=== PATIENT | female | born 1975 | race Hispanic/Latino ===

== ENCOUNTER 2020-02-14 13:20 | Observation (INO) | payer MEDICARE ==
[~2020-02-14] VITALS: Ht 170.2 cm; Wt 104.0 kg
[2020-02-14] VITALS (7 sets, daily range): BP systolic 93–146; BP diastolic 43–79
--- NOTE | 2020-02-14 13:20 | NUR ---
IMMEDIATELY TO TREATMENT ROOM #12 ON ARRIVAL TO ED.
--- NOTE | 2020-02-14 13:25 | NUR ---
PT CAME TO ER FOR ABD PAIN AND N/V AT HOME, STATES SHE IS HERE VISITING FROM [facility] AND HAS HAD THIS BEOFRE ABOUT 3 MONTHS AGO WITH NO DIAGNOSIS, STATES SHE HAS A HISTORY OF PANCREATIC CA WITH REMISSION X 6 YRS. SATETS THEY DID REMOVE MOST OF HER PANCREAS AND HER SPLEEN, CALL [facility].
[2020-02-14] MEDS ORDERED: GABAPENTIN100 MG PO ×2 (13:35→13:36)
[2020-02-14] MEDS ORDERED: REGLAN10 MG PO (13:36)
[2020-02-14] MEDS ORDERED: ZOFRAN8 MG PO (13:36)
[2020-02-14] MEDS ORDERED: PROTONIX40 MG PO (13:37)
[2020-02-14] MEDS ORDERED: MORPHINE SUL30 M3 PO ×2 (13:37→13:39)
[2020-02-14] MEDS ORDERED: DILAUDID8 MG PO (13:38)
[2020-02-14] MEDS ORDERED: ACETAMINOP160 MG/5 M PO (13:40)
[2020-02-14] MEDS ORDERED: KLONOPIN1 MG PO (13:43)
[2020-02-14 14:30] LABS: HEMOGLOBIN 13.9 g/dl (12.0-16.0); IMMATURE GRANULOCYTES 0.7 % (0.0-5.0); MEAN CELL VOLUME 90.3 fL CALC (80.0-100.0); MEAN CORPUSCULAR HGB 30.6 pG CALC (26.0-32.0); MEAN CORPUSCULAR HGB CONC 33.9 g/dL CAL (32.0-36.0); NEUT# 16.75 thou/uL (2.00-7.15); RED BLOOD COUNT 4.54 mill/uL (4.20-5.60); RED CELL DISTRI WIDTH 13.6 % (11.5-15.5)
--- NOTE | 2020-02-14 14:35 | NUR ---
PT RESTING WITH EYES ROLLED BACK AT TIMES, THEN AROUSES AND MOANS OUT, NO EMESIS NOTED ALL THOUGH PT MAKES GAGGING NOISES, THEN PT NODS OFF OR APPEARS IN NO DISTRESS WITH EYES PARTIALLY CLOSED, [facility] [place] [facility], TAKES LARGE AMOUNTS OF PAIN MEDICATIO AT HOME BUT STATES SHE VOMITED IT UP THIS AM, PT CONTINUES TO BE NODDED OFF BUT WHEN STAFF ENTERS ROOM SHE MOANS AND MAKES GAGGING NOISE, WILL CONTINUE TO MONITOR
--- NOTE | 2020-02-14 14:43 | NUR ---
MEDICATED AGAIN WITH MORPHINE FOR PAIN AND ZOFRAN FOR NAUSEA, PHELBOTOMY AT BEDSIDE FOR LAB DRAWS, CALL MERLOS WITHIN REACH, IOVF TOELRATED WELL.
[2020-02-14 15:18] LABS: ALBUMIN 4.8 g/dL (3.2-5.0); ALKALINE PHOSPHATASE 110 u/l (38-126); ANION GAP 17 (6-22 (CALC)); BILIRUBIN, TOTAL 0.8 mg/dL (0.0-1.4); BUN 8 mg/dL (7-17); BUN/CREATININE RATIO 16 (12-20 (CALC)); CARBON DIOXIDE 22 mmol/l (22-30); CHLORIDE 101 mmol/l (95-108); CREATININE 0.5 mg/dL (0.5-1.0); GFR > 60 ML/MIN (>=60 (CALC)); GFR FOR AFR.AMER. > 60 ML/MIN (>=60 (CALC)); LIPASE 18 u/l (23-300); POTASSIUM 3.6 mmol/l (3.5-5.1); SGOT/AST 27 u/l (14-36); SODIUM 137 mmol/l (137-146)
--- NOTE | 2020-02-14 15:45 | NUR ---
PT CONTINUES TO CRY AND COMPLAIN OF PAIN DECLINES GOING TO CT ASKING FOR MORE PAIN MEDICATION EDUCATED REGARDING THE AMOPUNT OF PAIN MEDICATION SHE HAS BEEN GIVEN, IN TO SEE PATIENT.
--- NOTE | 2020-02-14 15:49 | NUR ---
PT AGREEABLE TO CT SCAN, TO RADIOLGY VIA STRETCHER
--- NOTE | 2020-02-14 16:25 | NUR ---
PT CONTINUES TO MOAN AND GROAN WITH EYES CLOSED, NO NEW COMPLAINTS OFFERED, PT MAKES GAGGING NOISES BUT NO EMESIS NOTED, ASKS FOR MORE ICE CHIPS WELL.
--- NOTE | 2020-02-14 17:06 | NUR ---
PT ASSSITED OOB TO BSC, URINE SPECIMEN OBTAINED, PT CONTINEUS TO CRY OUT AND MOAN WHEN STAFF IN ROOM, CALL [facility]
[2020-02-14 17:43] LABS: URINE BILIRUBIN - DIPSTICK NEGATIVE (NEGATIVE); URINE BLOOD DIPSTICK NEGATIVE (NEGATIVE); URINE COLOR YELLOW; URINE GLUCOSE - DIPSTICK NEGATIVE (NEGATIVE); URINE KETONE >=80 mg/dL (NEGATIVE); URINE LEUK ESTERASE NEGATIVE (NEGATIVE); URINE NITRITE - DIPSTICK NEGATIVE (Negative); URINE PROTEIN - DIPSTICK NEGATIVE (NEG-TRACE); URINE UROBILINOGEN - DIPSTICK 0.2 E.U./dL (0.2)
--- NOTE | 2020-02-14 17:45 | NUR ---
MD AWARE OF DIFFICULTY OBTAINING BC ONE PEDI BC OBTAINED AND IVF NAD ABT STARTED AT THIS TIME ORDERED, PT REPOSITIONED FOR COMFORT, CALL MERLOS WITHIN REACH, PT REQUESTS A SPONGE TO SWAB HER MOUTH AND ERASTO ICE WATER TO SWAB WITH WELL. BOTH PROVIDED, WILL CONTINUE TO MONITOR.
[2020-02-14 17:49] LABS: BARBITURATES NEGATIVE (NEGATIVE); COCAINE NEGATIVE (NEGATIVE); METHADONE NEGATIVE (NEGATIVE); TETRAHYDROCANNABIONOL POSITIVE (NEGATIVE); TRICYLIC ANTIDEPRESSANTS NEGATIVE (NEGATIVE)
[2020-02-14 17:50] LABS: OXCYCODONE POSITIVE (NEGATIVE)
--- NOTE | 2020-02-14 18:15 | NUR ---
SBAR PRINTED TO FLOOR
--- NOTE | 2020-02-14 18:17 | NUR ---
MEDICATED WITH ATIVAN ORDERED, AND ICE CHIPS PROVIDED, PT EDUCATED REGARDING NPO BUT PT ARGUES WUITH STAFF REGARDING AMOUNT OF INTAKE THUS FAR.
--- NOTE | 2020-02-14 19:05 | NUR ---
PT RESTING UPON MY ARRIVAL REPORT WAS RECEIVED...THEN VISITOR ARRIVED AND PT STARTED MOANING AND RANG CALL LIGHT STATING THAT HER PAIN WAS A 9-10. VISITOR ADVISED ME THAT "ATIVAN IS NOT FOR PAIN," AND THAT WE NEEDED TO GIVE HER SOMETHING FOR PAIN. ADVISED THAT SHE HAS HAD PLENTY OF PAIN MEDICATION IN ADDITION TO THE ATIVAN. PT MEDICATED WITH MORPHINE.
--- NOTE | 2020-02-14 19:31 | NUR ---
REPORT TO PRIYA/MED-SURG
--- NOTE | 2020-02-14 19:34 | NUR ---
DR WHITLEY NOTIFIED OF LACTIC ACID OF 2.7 AND OF BLOOD PRESSURES AROUND 176/93. ORDERS GIVEN.
--- NOTE | 2020-02-14 20:05 | NUR ---
ORDERS FAXED TO PHARM/CALLED TO VERIFY RECEIT.. NEEDED TO VERIFY ALLERGIES. PT HAS ADVERSE REACTION...BUT NO ALLERGIES. PT RESTING UPON ARRIVAL TO ROOM BUT STARTED TO MOAN. PT TO FLOOR VIA STRETCHER WITH POCKET MONITOR. UPON ARRIVAL PT STATES THAT SHE CANNOT WALK BECAUSE OF LEGS BEING NUMB AND THEN STATES THAT SHE CAN'T MOVE HANDS. PT MOVED HERSELF TO BED.
--- NOTE | 2020-02-14 20:54 | NUR ---
ART SPECIALIST PHYSICIAN NOTIFIED OF PT C/O OF NO RELIEF OF PAIN FROM MORPHINE AND PT REQUESTING DILAUDID. MADE PHYSICIAN AWARE OF MEDICATIONS RECEIVED FROM PT AND SENT TO PHARMACY THAT ALSO INCLUDED MEDICATIONS NOT PRESCRIBED TO PT. REED DECLINED ANY OTHER ORDERS FROM PAIN MEDICATION AT THIS TIME. WILL CONTINUE TO MONITOR LABS AND ADMINISTER ABT ORDERED, MEDICATE FOR PAIN NEEDED WITH MORPHINE.
--- NOTE | 2020-02-14 21:31 | NUR ---
DRESS CAP MAKER PHYSICIAN NOTIFIED OF REPEAT LACTIC ACID NOW 3.3. ORDERS RECEIVED TO START VANCOMYCIN IV PHARMACY TO DOSE, INCREASE IV FLUIDS TO 150ML/HR AND CONTINUE TO MONITOR. INFORMED PT AT THIS TIME OF FINDINGS AND NEW ORDERED. PT VERBALIZED UNDERSTANDING.
--- NOTE | 2020-02-14 22:30 | NUR ---
DR. LEES NOTIFIED OF PT STATUS AT THIS TIME PER DIRECTOR OF PHYSICIAN PRACTICES PHYSICIAN. ORDERS RECEIVED TO GIVE BOLUS OF FLUIDS. WILL CONTINUE TO MONITOR.
--- NOTE | 2020-02-14 22:58 | NUR ---
ENTRANCE GUARD RECEIVED PHONE CALL FROM . UPDATED ON PT CURRENT VS. NEW ORDERS RECEIVED FOR CTA OF ABD AND REPEAT LACTIC IN AM.
--- NOTE | 2020-02-15 01:04 | NUR ---
PT MEDICATED FOR SHARP EPIGASTRIC PAIN THAT RADIATES AROUND TO BACK AND DOWN RIGHT SIDE 8-10. CURRENT BP 120/60 HR 54. ASSISTED PT UP TO BSC, PT VOID 1600 CLEAR YELLOW OUTPUT. AFEBRILE AT THIS TIME. NO APPARENT DISTRESS NOTED. IV ABT INFUSING WITHOUT DIFFICULTY. CALL LIGHT WITHIN REACH. WILL CONTINUE TO MONITOR.
[2020-02-15 04:38] VITALS: BP 118/56
--- NOTE | 2020-02-15 04:48 | NUR ---
PT MEDICATED FOR SHARP EPIGASTRIC PAIN 9-10 WITH PRN IV MORPHINE. PT DENIES ANY OTHER WANTS OR NEEDS. CALL LIGHT WITHIN REACH. WILL CONTINUE TO MONITOR.
[2020-02-15 07:01] LABS: HEMATOCRIT 35.1 % (37.0-47.0); HEMOGLOBIN 11.6 g/dl (12.0-16.0); IMMATURE GRANULOCYTES 0.3 % (0.0-5.0); MEAN CELL VOLUME 91.6 fL CALC (80.0-100.0); MEAN CORPUSCULAR HGB 30.3 pG CALC (26.0-32.0); NEUT# 11.04 thou/uL (2.00-7.15); RED BLOOD COUNT 3.83 mill/uL (4.20-5.60); RED CELL DISTRI WIDTH 13.4 % (11.5-15.5)
[2020-02-15 07:05] LABS: ALKALINE PHOSPHATASE 67 u/l (38-126); ANION GAP 10 (6-22 (CALC)); BILIRUBIN, TOTAL 0.6 mg/dL (0.0-1.4); BUN 6 mg/dL (7-17); BUN/CREATININE RATIO 13 (12-20 (CALC)); CARBON DIOXIDE 21 mmol/l (22-30); CHLORIDE 108 mmol/l (95-108); CREATININE 0.5 mg/dL (0.5-1.0); GFR > 60 ML/MIN (>=60 (CALC)); GFR FOR AFR.AMER. > 60 ML/MIN (>=60 (CALC)); POTASSIUM 3.5 mmol/l (3.5-5.1); SGOT/AST 23 u/l (14-36); SODIUM 135 mmol/l (137-146)
[2020-02-15 07:22] VITALS: BP 106/56
--- NOTE | 2020-02-15 07:22 | NUR ---
PT RESTING IN BED, NO SIGNS OF DISTRESS NOTED, RESP EVEN AND UNLABORED. PT C/O PAIN, DISCUSSED POC, AND PAIN MEDICATION SCHEDULE, MED NOT DUE AT THIS TIME, PT VERBALIZED UNDERSTANDING. ASSESSMENT COMPLETED, CALL LIGHT IN REACH,CONTINUE TO MONITOR.
[2020-02-15 07:24] LABS: ALBUMIN 3.3 g/dL (3.2-5.0)
--- NOTE | 2020-02-15 08:13 | NUR ---
PT MEDICATED FOR PAIN AT THIS TIME,MOUTH SWABS PROVIDED, CALL LIGHT IN REACH,CONTINUE TO MONITOR.
--- NOTE | 2020-02-15 08:35 | NUR ---
S: QUINCY MELGAR is a 44 F who presents with Abdominal Pain. She has a history of PANCREATIC CANCER CHRONIC PAIN SYNDROME. All medications in patient's chart were reviewed. O: VS: BP 106/56, P 63, RR 22,T 99.7 W 104 kg, HT 67 in, Scr= 0.5,CrCl= >100ml/min A: Blood culture is pending P: Patient is on Zosyn 3.375grams q6h . Vancomycin ordered for pharmacy to dose. Start Vancomycin 2 grams IV Q12H. Vancomycin trough is drawn before the 4th dose on 02/16/20 @ 1030. Vancomycin goal trough is between 10-20 mcg/ml . Pharmacy will follow and or advise on antibiotics use as needed. LEXI CABRERA PHARMD
--- NOTE | 2020-02-15 09:10 | NUR ---
AT BEDSIDE TO EVALUATE PT
[2020-02-15 10:45] VITALS: BP 118/68
--- NOTE | 2020-02-15 10:58 | NUR ---
PT C/O SEVERE ABD PAIN, DISCUSSED WITH AND NABEEL NO NEW ORDERS FOR PAIN MEDICATION RECEIVED. INFORMED PT THAT PAIN MED CAN BE ADMINISTERED AT 1230, PT REQUESTING HER HOME PAIN MED, INFORMED PT THAT MEDS WERE SENT TO PHARMACY AND PER POLICY MEDICATIONS WOULD HAVE TO BE APPROVED BY MD, INFORMED PT THAT MD WILL EVALUATE SHORTLY.
--- NOTE | 2020-02-15 12:10 | NUR ---
PT TEARFUL C/O PAIN 07/11, MEDICATED FOR PAIN AND NAUSEA, DISCUSSED ZOSYN, IV INITIATED. INFORMED PT THAT ONCE SHE RETURNS FROM ULTRASOUND SHE MAY TAKE HER HOME PAIN MEDICATION. PT AGREED.
--- NOTE | 2020-02-15 12:28 | NUR ---
PT TAKEN DOWN TO ULTRASOUND; CONTINUE TO MONITOR.
--- NOTE | 2020-02-15 13:13 | NUR ---
PT RETURNED FROM RADIOLOGY, ANTIBIOTICS CONTINUED. PT MEDICATED WITH SCHEDULED MEDS AT THIS TIME. WATER PROVIDED. CALL LIGHT IN REACH,CONTINUE TO MONITOR.
--- NOTE | 2020-02-15 13:42 | NUR ---
MD AT BEDSIDE, TO DISCUSS POC
[2020-02-15 15:15] VITALS: BP 126/62
--- NOTE | 2020-02-15 20:42 | NUR ---
PT RESTING IN BED, ALERT AND ORIETNED. RESPIRATIONS EVEN AND UNLABORED ON RA. LUNGS SOUND CLEAR/DIMINISHED. PEDAL PULSES STRONG. TELE IN PLACE. CALL MERLOS WITHIN REACH. WILL CONTINUE TO MONTIOR.
[2020-02-16 00:07] VITALS: BP 107/63
--- NOTE | 2020-02-16 00:27 | NUR ---
PT RESTING IN BED, WITH EYES CLOSED. RESPIRATIONS EVEN AND UNLABORED, NO S/S OF DISTRESS AT THIS TIME. SAFETY PRECAUTIONS IN PLACE. WILL CONTINUE TO MONITOR.
[2020-02-16 03:10] VITALS: BP 111/74
--- NOTE | 2020-02-16 04:20 | NUR ---
PT RESTING IN BED. RESPIRATIONS EVEN AND UNLABORED ON RA. NO S/S OF DISTRESS AT THIS TIME. TELE IN PLACE. CALL MERLOS WITHIN REACH, WILL CONTINUE TO MONITOR.
[2020-02-16 04:57] LABS: HEMATOCRIT 32.9 % (37.0-47.0); MEAN CELL VOLUME 92.9 fL CALC (80.0-100.0); MEAN CORPUSCULAR HGB 31.1 pG CALC (26.0-32.0); MEAN CORPUSCULAR HGB CONC 33.4 g/dL CAL (32.0-36.0); RED BLOOD COUNT 3.54 mill/uL (4.20-5.60); RED CELL DISTRI WIDTH 13.7 % (11.5-15.5)
[2020-02-16 05:14] LABS: ANION GAP 8 (6-22 (CALC)); BUN 4 mg/dL (7-17); BUN/CREATININE RATIO 9 (12-20 (CALC)); CARBON DIOXIDE 24 mmol/l (22-30); CHLORIDE 109 mmol/l (95-108); CREATININE 0.4 mg/dL (0.5-1.0); GFR > 60 ML/MIN (>=60 (CALC)); GFR FOR AFR.AMER. > 60 ML/MIN (>=60 (CALC)); POTASSIUM 3.5 mmol/l (3.5-5.1); SODIUM 137 mmol/l (137-146)
[2020-02-16 07:14] VITALS: BP 116/75
--- NOTE | 2020-02-16 07:14 | NUR ---
PT RESTING IN BED, NO SIGNS OF DISTRESS NOTED, RESP EVEN AND UNLABORED. PT ALERT AND ORIENTED X3. STATES SHE FEELS BETTER THAN YESTERDAY, DISCUSSED POC, VSS, PT C/O PAIN, MEDICATED PER MAR. ASSESSMENT COMPLETED, CALL LIGHT IN REACH, CONTINUE TO MONITOR.
--- NOTE | 2020-02-16 09:18 | NUR ---
PT AMBULATING TO BED FROM BATHROOM, NO SIGNS OF DISTRESS NOTED, RESP EVEN AND UNLABORED. PT VOICES NO NEEDS OR COMPLAINTS AT THIS TIME, MEDICATED PER MAR, CALL LIGHT IN REACH,CONTINUE TO MONITOR.
--- NOTE | 2020-02-16 10:46 | NUR ---
TO EVALUATE PT
[2020-02-16 11:09] VITALS: BP 127/78
--- NOTE | 2020-02-16 12:00 | NUR ---
PT SITTING IN BED EATING LUNCH, CALL LIGHT IN REACH,CONTINUE TO MONITOR.
--- NOTE | 2020-02-16 13:50 | NUR ---
S: QUINCY MELGAR is a 44 F who presents with ABDOMINAL PAIN WITH WBC OF 23.4 . She has a history of CANCER . All medications in patient's chart were reviewed. O: VS: BP 127/78, P 56, RR 20,T 98.8 W 104kg, HT 67 IN, Scr= 0.4 A: Blood culture NO GROWTH OF 24HRS P: Patient is on ZOSYN 3.375 GRAMS Q6H Vancomycin ordered for pharmacy to dose. VANCOMYCIN TROUGH IS AT 9 ON 02/16/20 CONTINUE Vancomycin 2 GRAMS IV Q12H. Vancomycin trough is drawn before the 4th dose on 02/17/20 @1030. Vancomycin goal trough is between 10-20 mcg/ml. Pharmacy will follow and or advise on antibiotics use as needed. LEXI CABRERA PHARMD
[2020-02-16 15:24] VITALS: BP 112/71
--- NOTE | 2020-02-16 17:21 | NUR ---
PT SITTING IN BED, ZOSYN INFUSION INITIATED. CALL LIGHT IN REACH,CONTINUE TO MONITOR.
[2020-02-16 19:30] VITALS: BP 124/78
--- NOTE | 2020-02-17 00:15 | NUR ---
PT RESTING IN BED ALERT AND ORIENTED, PT STATES "I THINK MY IV IS LEAKING" IV SITE ASSESSED, IV #20 RIJ COMING OUT, IV REMOVED, NEW IV STARTED #22 LEFT FORARM, PT TOLERATED WELL. SAFETY PRECAUTIONS IN PLACE. WILL CONTINUE TO MONITOR.
--- NOTE | 2020-02-17 03:58 | NUR ---
PT RESTING IN BED. NO S/S OF DISTRESS AT THIS TIME. SAFETY PRECAUTIONS IN PLACE. WILL CONTINUE TO MONITOR.
[2020-02-17 04:36] VITALS: BP 113/76
[2020-02-17 05:26] LABS: ANION GAP 6 (6-22 (CALC)); BUN 4 mg/dL (7-17); BUN/CREATININE RATIO 8 (12-20 (CALC)); CARBON DIOXIDE 26 mmol/l (22-30); CHLORIDE 110 mmol/l (95-108); CREATININE 0.5 mg/dL (0.5-1.0); GFR > 60 ML/MIN (>=60 (CALC)); GFR FOR AFR.AMER. > 60 ML/MIN (>=60 (CALC)); POTASSIUM 3.8 mmol/l (3.5-5.1); SODIUM 138 mmol/l (137-146)
[2020-02-17 05:29] LABS: HEMATOCRIT 35.7 % (37.0-47.0); HEMOGLOBIN 11.8 g/dl (12.0-16.0); IMMATURE GRANULOCYTES 0.4 % (0.0-5.0); MEAN CELL VOLUME 92.7 fL CALC (80.0-100.0); MEAN CORPUSCULAR HGB 30.6 pG CALC (26.0-32.0); MEAN CORPUSCULAR HGB CONC 33.1 g/dL CAL (32.0-36.0); NEUT# 3.78 thou/uL (2.00-7.15); RED BLOOD COUNT 3.85 mill/uL (4.20-5.60)
--- NOTE | 2020-02-17 07:10 | NUR ---
REPORT RECEIVED FROM STEVEN WHITEHEAD;PT APPEARS TO BE SLEEPING IN SEMI FOWLERS POSITION;NO S/S OF DISTRESS NOTED;RESPIRATIONS EVEN AND UNLABORED ON RA;IV FLUIDS INFUSING WITH EASE PER ORDER;ALL SAFETY PRECAUTIONS IN PLACE WITH BED IN THE LOWEST POSITION AND CALL LIGHT IN REACH;WILL CONTINUE TO MONITOR
--- NOTE | 2020-02-17 09:05 | NUR ---
PT RESTING IN SEMI FOWLERS POSITION,A&O X3;VS OBTAINED AND ASSESSMENT COMPLETED;PT REPORTS ABDOMINAL PAIN RATING 6/10 ON THE PAIN SCALE AND REQUESTS PAIN MEDICATION,PT TO BE MEDICATED WITH PRN HOME HYDROMORPHONE PER ORDER;RESPIRATIONS EVEN AND UNLABORED ON RA,CLEAR LUNG SOUNDS;ABDOMEN DISTENDED/SOFT ON PALPATION AND ACTIVE IN ALL 4 QUADRANTS;STRONG PEDAL PULSES;SKIN INTACT;#22G TO LFA INFUSING NS @ 150ML/HR,SITE APPEARS HEALTHY;PT TOLERATED DIET WELL;PT DENIES ANY ADDITIONAL NEEDS AT THIS TIME AND IS ENCOURAGED TO CALL FOR ASSISTANCE IF NEEDED;FALL PRECAUTIONS IN PLACE WITH CALL LIGHT IN REACH;WILL CONTINUE TO MONITOR
[2020-02-17 09:08] VITALS: BP 121/74
--- NOTE | 2020-02-17 10:30 | NUR ---
LAB AT BEDSIDE
[2020-02-17 10:45] VITALS: BP 125/79
--- NOTE | 2020-02-17 11:20 | NUR ---
PT RESTING IN SEMI FOWLERS POSITION;RESPIRATIONS REMAIN EVEN AND UNLABORED ON RA;PT REPORTS THAT PAIN HAS DECREASED SINCE PAIN MEDICATION ADMINISTRATION;IV FLUIDS INFUSING WITH EASE PER ORDER AND ABX STARTED AT THIS TIME.VANCO TROUGH 10;PT DENIES ANY ADDITIONAL NEEDS AT THIS TIME AND IS ENCOURAGED TO CALL FOR ASSISTANCE IF NEEDED;CALL LIGHT IN REACH;WILL CONTINUE TO MONITOR
--- NOTE | 2020-02-17 12:37 | NUR ---
AT BEDSIDE DISCUSSING POC WITH PT.
[2020-02-17] MEDS ORDERED: METRONIDAZOL500 MG PO ×2 (12:39)
[2020-02-17] MEDS ORDERED: CIPROFLOXACN500 MG PO ×2 (12:39)
--- NOTE | 2020-02-17 13:15 | NUR ---
ALL DISCHARGE INSTRUCTIONS PROVIDED AT THIS TIME;PT INSTRUCTED TO TAKE FLAGYL AND CIPRO DIRECTED,RX WERE SENT TO [facility];PT ALSO INSTRUCTED TO KEEP WELL HYDRATED AND F/U WITH PAIN AND GI SPECIALIST;PT DENIES ANY ADDITIONAL QUESTIONS OR NEEDS;HOME MEDICATIONS PROVIDED TO PT FOR D/C HOME;WHEELCHAIR TO BE PROVIDED FOR D/C HOME;AWAITING IV ABX TO BE INFUSED FOR D/C;PT ENCOURAGED TO CALL FOR ASSISTANCE IF NEEDED;CALL LIGHT IN REACH;WILL CONTINUE TO MONITOR
--- NOTE | 2020-02-17 15:45 | NUR ---
PT AMBULATING AROUND ROOM AFTER A SHOWER;RESPIRATIONS EVEN AND UNLABORED ON RA;PT DENIES ANY CURRENT PAIN OR NEEDS;FAMILY TO TRANSPORT PT HOME;WHEELCHAIR TO BE PROVIDED FOR D/C;ENCOURAGED TO CALL FOR ASSISTANCE IF NEEDED;CALL LIGHT IN REACH;WILL CONTINUE TO MONITOR
--- NOTE | 2020-02-17 16:17 | NUR ---
Discharge instructions given. Patient verbalizes understanding of same. Discharged in stable condition via Wheelchair to Home with family. All belongings sent with pt. PT TRANSPORTED TO [facility] IN STABLE CONDITION VIA WHEELCHAIR FOR D/C HOME ACCOMPANIED BY ADRI ODONNELL.FAMILY TO TRANSPORT PT HOME.
== END 2020-02-17 16:18 | disposition home or self-care (01) ==
LOC: ED 13:20 → ED-I 16:57 → ED 18:11 → ED-I 18:12 → EDBD 18:12 → MS2 18:12 → ED-I 18:12 → MS2 18:56
PROVIDERS: Family Medicine; Nurse Practitioner Family; Surgery; ADMIT Internal Medicine; ATTEND Internal Medicine
DX: G89.4 Chronic pain syndrome (principal); D72.829 Elevated white blood cell count, unspecified; E87.2 Acidosis; N28.1 Cyst of kidney, acquired; K76.0 Fatty (change of) liver, not elsewhere classified; Z90.411 Acquired partial absence of pancreas; Z90.81 Acquired absence of spleen; Z85.07 Personal history of malignant neoplasm of pancreas; Z20.828 Contact with and (suspected) exposure to other viral communicable diseases
CPT/HCPCS: G0378; J1650; J2060; Q9967; S0164

== ENCOUNTER 2020-05-07 13:05 | Inpatient (IN) | payer MEDICARE ==
[~2020-05-07] VITALS: Ht 170.2 cm; Wt 100.0 kg
[~2020-05-07 13:05] MED LIST: ACETAMINOP160 MG/5 M PO; CIPROFLOXACN500 MG PO; DILAUDID8 MG PO; GABAPENTIN100 MG PO; KLONOPIN1 MG PO; METRONIDAZOL500 MG PO; MORPHINE SUL30 M3 PO; PROTONIX40 MG PO; REGLAN10 MG PO; ZOFRAN8 MG PO
--- NOTE | 2020-05-07 13:12 | NUR ---
MEDICATED WITH MORPHINE 4MG IVP WITH ZOFRAN 4MG IVP FOR C/O 9/10 ABD PAIN.
--- NOTE | 2020-05-07 13:16 | NUR ---
PATIENT TO ROOM VIA EMS AND PHYSICIAN AT BEDSIDE FOR EVAL
--- NOTE | 2020-05-07 13:50 | NUR ---
PT SWABBED FOR COVID, PLACED IN ISOLATION PRECAUTIONS.
[2020-05-07 14:10] LABS: IMMATURE GRANULOCYTES 0.6 % (0.0-5.0); MEAN CELL VOLUME 94.6 fL CALC (80.0-100.0); MEAN CORPUSCULAR HGB 30.2 pG CALC (26.0-32.0); MEAN CORPUSCULAR HGB CONC 31.9 g/dL CAL (32.0-36.0); NEUT# 15.65 thou/uL (2.00-7.15); RED BLOOD COUNT 4.64 mill/uL (4.20-5.60); RED CELL DISTRI WIDTH 13.2 % (11.5-15.5)
[2020-05-07 14:15] LABS: HEMATOCRIT 43.9 % (37.0-47.0)
[2020-05-07 14:37] LABS: ALKALINE PHOSPHATASE 97 u/l (38-126); AMYLASE 72 u/l (30-110); ANION GAP 14 (6-22 (CALC)); BILIRUBIN, TOTAL 0.5 mg/dL (0.0-1.4); BUN 9 mg/dL (7-17); BUN/CREATININE RATIO 17 (12-20 (CALC)); CARBON DIOXIDE 22 mmol/l (22-30); CHLORIDE 104 mmol/l (95-108); CREATININE 0.5 mg/dL (0.5-1.0); GFR > 60 ML/MIN (>=60 (CALC)); GFR FOR AFR.AMER. > 60 ML/MIN (>=60 (CALC)); LIPASE 12 u/l (23-300); POTASSIUM 3.9 mmol/l (3.5-5.1); SGOT/AST 30 u/l (14-36); SODIUM 135 mmol/l (137-146)
--- NOTE | 2020-05-07 14:43 | NUR ---
MEDICATED PT FOR NAUSEA AND 8/10 UPPER ABD PAIN. SUPPLEMENTAL OXYGEN APPLIED FOR COMFORT. IVF COMPLETED. ANATOLIY ONE PEDIATRIC BLOOD CULTURE.
[2020-05-07 14:51] LABS: ALBUMIN 4.5 g/dL (3.2-5.0); TOTAL PROTEIN 7.9 g/dL (6.3-8.2)
--- NOTE | 2020-05-07 15:00 | NUR ---
PT RESTING MORE COMFORTABLY AT THIS TIME. NO EMESIS. VSS. COMPLETED IVF BOLUS
--- NOTE | 2020-05-07 16:28 | NUR ---
MEDICATED WITH IV DILAUDID ORDERED FOR ABD PAIN 05/11. WICK PLACED FOR COMFORT AND TO OBTAIN URINE
--- NOTE | 2020-05-07 16:50 | NUR ---
OBTAINED CLEAR YELLOW URINE VIA STRAIGHT CATH. PT TOLERATED WELL.
[2020-05-07 17:02] LABS: URINE BILIRUBIN - DIPSTICK NEGATIVE (NEGATIVE); URINE BLOOD DIPSTICK NEGATIVE (NEGATIVE); URINE COLOR YELLOW; URINE GLUCOSE - DIPSTICK 100 mg/dL (NEGATIVE); URINE KETONE 40 mg/dL (NEGATIVE); URINE LEUK ESTERASE NEGATIVE (NEGATIVE); URINE NITRITE - DIPSTICK NEGATIVE (Negative); URINE PROTEIN - DIPSTICK NEGATIVE (NEG-TRACE); URINE UROBILINOGEN - DIPSTICK 0.2 E.U./dL (0.2)
--- NOTE | 2020-05-07 17:25 | NUR ---
PT RESTING WITH EYES CLOSED WHEN ROUSED BY STAFF STATES ABD PAIN 03/11. VISITOR AT BEDSIDE
--- NOTE | 2020-05-07 18:50 | NUR ---
HAND OFF REPORT RECEIVED FROM STEVEN DE LOS SANTOS
--- NOTE | 2020-05-07 18:59 | NUR ---
PATIENT TO ULTRASOUND BY STRETCHER
--- NOTE | 2020-05-07 20:30 | NUR ---
HAND OFF REPORT GIVEN TO KEISHA FOR INPATIENT TREATMENT.
--- NOTE | 2020-05-07 20:39 | NUR ---
45 yr old white female admitted icu6 per stretcher from er. transferred x3 to bed. bed weight obtained. #18 lac ns began @ 125cchr as ordered. bus monitor shows sinus cynthia hr 48. asked pt about hr. pt said "it happens when i get sick." history obtained per pt & er record. oriented to room. fall & air/contact precautions initiated.
[2020-05-07 20:45] VITALS: BP 168/95
[2020-05-07 21:00] VITALS: BP 193/86
--- NOTE | 2020-05-07 21:00 | NUR ---
medicated for pain & nausea.
--- NOTE | 2020-05-07 22:00 | NUR ---
pt yelling out for assistance. instructed again about call system. assisted to bsc. voided large amt then back to bed. ice chips given as requested.
[2020-05-07 22:15] VITALS: BP 176/84
[2020-05-07 22:30] VITALS: BP 194/90
[2020-05-07 22:45] VITALS: BP 166/66
[2020-05-08] VITALS (16 sets, daily range): BP systolic 122–186; BP diastolic 66–95
--- NOTE | 2020-05-08 00:01 | NUR ---
eyes closed. nad. chief hospital administrator shows sinus cynthia hr 50. ivf infusing well.
--- NOTE | 2020-05-08 01:15 | NUR ---
c/o pain & nausea. medicated as ordered.
--- NOTE | 2020-05-08 01:30 | NUR ---
up to bsc then back to bed. voided lg amt.
--- NOTE | 2020-05-08 04:00 | NUR ---
eyes closed. no distress. cardiac cath lab manager shows sinus cynthia pvcs hr 50.
--- NOTE | 2020-05-08 05:30 | NUR ---
voided per bsc. vicki well.
--- NOTE | 2020-05-08 07:15 | NUR ---
REPORT RECEIVED FROM STEVEN VALDES. PT RESTING IN BED SEMI FOWLERS; ORIENTED X 3; EYES CLOSED WITH FACIAL GRIMACING. PT C/O 8/ ABDOMINAL PAIN, DENIES NAUSEA; REPORTS ACID REFLUX. BS HYPOACTIVE. RESPIRATIONS EVEN AND UNLABORED ON ROOM AIR. IV FLUIDS INFUSING WITHOUT DIFFICULTY; IV SITE APPEARS HEALTY. ON AIRBORNE/CONTACT ISOLATION PENDING COVID SWAB. SAFETY MEASURES IN PLACE. CALL LIGHT WITHIN REACH.
--- NOTE | 2020-05-08 07:50 | NUR ---
DILAUDID AND ZOFRAN GIVEN AT THIS TIME. PT SWEATING; WARM MOIST SKIN; TEMP 98.4.
--- NOTE | 2020-05-08 08:28 | NUR ---
DR. CARVER AT BEDSIDE. NEW ORDER FOR GENERAL SURGERY CONSULT. DR. BOSE NOTIFIED. PT UP TO BSC TO VOID 900 ML CLEAR YELLOW URINE.
--- NOTE | 2020-05-08 09:30 | NUR ---
DR. BOSE AT BEDSIDE FOR EVAL. VERBAL ORDER TO OBTAIN CONSENT FOR LAP VIVIAN. DR. BOSE SPOKE TO DR. CARVER ON PHONE. PT SIGNED WRITTEN CONSENT. PT UPDATED FAMILY VIA PHONE.
--- NOTE | 2020-05-08 10:31 | NUR ---
BIOFIRE SWAB OBTAINED; LAB AT BEDSIDE. OR ON UNIT FOR TRANSFER VIA STRETCHER.
--- NOTE | 2020-05-08 10:33 | NUR ---
PT OFF UNIT IN STABLE CONDITION.
[2020-05-08 10:51] LABS: HEMATOCRIT 46.2 % (37.0-47.0); IMMATURE GRANULOCYTES 0.4 % (0.0-5.0); MEAN CELL VOLUME 92.2 fL CALC (80.0-100.0); MEAN CORPUSCULAR HGB 29.9 pG CALC (26.0-32.0); MEAN CORPUSCULAR HGB CONC 32.5 g/dL CAL (32.0-36.0); NEUT# 18.11 thou/uL (2.00-7.15); RED BLOOD COUNT 5.01 mill/uL (4.20-5.60); RED CELL DISTRI WIDTH 13.5 % (11.5-15.5)
[2020-05-08 11:18] LABS: ANION GAP 15 (6-22 (CALC)); BUN 7 mg/dL (7-17); BUN/CREATININE RATIO 13 (12-20 (CALC)); CARBON DIOXIDE 26 mmol/l (22-30); CHLORIDE 100 mmol/l (95-108); CREATININE 0.5 mg/dL (0.5-1.0); GFR > 60 ML/MIN (>=60 (CALC)); GFR FOR AFR.AMER. > 60 ML/MIN (>=60 (CALC)); POTASSIUM 3.8 mmol/l (3.5-5.1); SODIUM 137 mmol/l (137-146)
--- NOTE | 2020-05-08 13:34 | NUR ---
PT ARRIVED TO ROOM VIA STRETCHER WITH OR STAFF; ALERT AND ORIENTED. ASSISTED SELF ONTO BED AND TO BSC FOR VOID. C/O 610 ABDOMINAL PAIN; 4 LAP SITES WITH GAUZE AND TEGADERM CDI. RESPIRATIONS EVEN AND UNLABORED ON OXYGEN 2L VIA NC. REPOSITIONED BACK INTO BED; SCDS APPLIED TO BLE. INSENTIVE SPIROMETER PROVIDED AND EDUCATED ON. VSS. LR NOW INFUSING INTO EMS SITE TO LAC. PT CHANGED TO STANDARD PRECAUTIONS AFTER NEGATIVE BIOFIRE RESULTS. SAFETY MEASURES IN PLACE. CALL LIGHT WITHIN REACH.
--- NOTE | 2020-05-08 15:05 | NUR ---
SITTING UP IN BED TALKING TO FAMILY AT BEDSIDE.
--- NOTE | 2020-05-08 15:17 | NUR ---
ZOFRAN AND DILAUDID GIVEN AT THIS TIME. PT UP TO BSC; VOIDING LARGE AMOUNTS OF CLEAR PALE YELLOW URINE.
--- NOTE | 2020-05-08 16:29 | NUR ---
FAMILY MEMBER AT BEDSIDE. VSS.
--- NOTE | 2020-05-08 17:13 | NUR ---
PT REQUESTING MORE PAIN MEDICATION; NEW ORDER RECEIVED TO INCREASE DILAUDID TO 2MG Q4HR FOR SEVERE PAIN.
--- NOTE | 2020-05-08 19:00 | NUR ---
awake. medicated for pain as requested. dsgs to puncture sites cdi. telemetry monitor shows sinus cynthia pvcs hr 44. #18 lac. rl infusing @ 125cchr. po fluids taken well. voids per bsc. fall precautions cont.
--- NOTE | 2020-05-08 23:00 | NUR ---
medicated for pain & nausea as requested. water & juice given per request. no emesis.
[2020-05-09 03:10] VITALS: BP 140/70
--- NOTE | 2020-05-09 03:10 | NUR ---
medicated for pain & nausea as requested. water & juice given as requested. no emesis.
--- NOTE | 2020-05-09 05:16 | NUR ---
lab here. blood drawn.
[2020-05-09 05:47] LABS: IMMATURE GRANULOCYTES 0.4 % (0.0-5.0); MEAN CELL VOLUME 95.9 fL CALC (80.0-100.0); MEAN CORPUSCULAR HGB CONC 31.3 g/dL CAL (32.0-36.0); NEUT# 9.32 thou/uL (2.00-7.15); RED BLOOD COUNT 4.13 mill/uL (4.20-5.60); RED CELL DISTRI WIDTH 13.7 % (11.5-15.5)
[2020-05-09 06:13] LABS: HEMATOCRIT 39.6 % (37.0-47.0); HEMOGLOBIN 12.4 g/dl (12.0-16.0)
[2020-05-09 06:15] LABS: ANION GAP 9 (6-22 (CALC)); BUN 7 mg/dL (7-17); BUN/CREATININE RATIO 15 (12-20 (CALC)); CARBON DIOXIDE 23 mmol/l (22-30); CHLORIDE 106 mmol/l (95-108); CREATININE 0.5 mg/dL (0.5-1.0); GFR > 60 ML/MIN (>=60 (CALC)); GFR FOR AFR.AMER. > 60 ML/MIN (>=60 (CALC)); SODIUM 133 mmol/l (137-146)
--- NOTE | 2020-05-09 06:45 | NUR ---
RECIEVED REPORT FROM JC VALDES. ASSUMED PT CARE.
[2020-05-09 07:15] VITALS: BP 87/50
--- NOTE | 2020-05-09 07:15 | NUR ---
PT CALLED FOR NURSE REQUESTING PAIN MEDICATION AND MEDICATION FOR N/V. UPON ASSESSMENT PT B/P NOTED AT 86/52. PT MEDICATED FOR N/V REQUESTED. PAIN MEDICATION HELD . PT ALSO WITH MULTIPLE BAGS IN BED. PT ASKED TO MOVE BELONGINGS, AT 1ST PT REFUSED. TP ASKED IF THERE WAS ANY MEDICATIONS OR PRESCRIPTIONS IN PERSONAL BELONGINGS AND EDUCATED ON THE RISKS OF TAKING EXTRA. PT GAVE THIS NURSE 4 PILL BOTTLES ON MEDICATION. 1 FOR CLOZEPAM 1MG(EMPTY), 1 PROTONIX (DIFFERENT PILLS INSIDE), 1 PROTONIX (DIFFERENT PILLS INSIDE), 1 ZOFRAN. PHARMACY NOTIFIED.
--- NOTE | 2020-05-09 08:00 | NUR ---
DR. BOSE AT BEDSIDE FOR ASSESSMENT AND TO DISCUSS PLAN OF CARE. PT DIET ADVANCED TO REGULAR.
[2020-05-09 09:00] VITALS: BP 114/60
--- NOTE | 2020-05-09 09:00 | NUR ---
DR. TOVAR AT [facility] FOR ASSESSMENT AND TO DISCUSS PLAN OF CARE, NO NEW ORDERS NOTED.
--- NOTE | 2020-05-09 12:04 | NUR ---
UP TO BSC. THEN BACK TO BED, TOLERATED TRANSFERR WELL.
--- NOTE | 2020-05-09 13:15 | NUR ---
PT MEDICATED FOR 9/10 ABDOMINAL PAIN ORDERED PER PT REQUEST. WILL MONITOR.
[2020-05-09 15:53] VITALS: BP 108/67
--- NOTE | 2020-05-09 15:55 | NUR ---
PT FAMILY ARRIVED AT BEDSIDE. NO DISTRESS NOTED AT THIS TIME. CALL LIGHT IN REACH. WILL MONITOR.
--- NOTE | 2020-05-09 19:50 | NUR ---
PT IS AWAKE, ALERT AND ORIENTED X4, HAS BEEN TALKING ON THE PHONE. ON RA. NO SOB NOTED. NURSING ASSESSMENT PERFORMED. LAC 18 G IV INTACT AND IV FLUIDS INFUSING PROPERLY, DID NOTIFY PATIENT ALTHOUGH IV IS FUNCTIONING PROPERLY I WILL BE CHANGING IT TONIGHT BECAUSE IT IS DUE FOR CHANGING, PT UNDERSTANDS AND AGREES. SCD'S INTACT. X5 INCISIONS ON ABDOMEN AREA ARE INTACT, NO DRAINAGE NOTED, NO TENDERNESS NOTED, ONLY IRRITATION ON OUTER SKIN FROM TEGADERM NOTED ON 2 OF DRESSING SITES. PT COMPLAINS OF PAIN 9/10 AND REQUESTS FOR PAIN MED FREQUENCY TO Q3H, WILL NOTIFY DOC. AFEBRILE. POC DISCUSSED, PT UNDERSTANDS AND AGREES. SELF REPSOTIONS. CLAL LIGHT WITHIN REACH.
--- NOTE | 2020-05-09 20:22 | NUR ---
PT EDITOR MANAGING DIRECTOR LIGHT, REQUESTS ICED WATER, APPLE JUICE, CRACKERS, ALL PROVIDED.
--- NOTE | 2020-05-09 20:56 | NUR ---
NOTIFIED DR TOVAR OF PATIENT COMPLAINS OF PAIN RATE OF 06/11, SHE REQUESTS FOR HE RPAIN MEDIACTION TO BE CHANGED TO EVERY 3 HRS FOR HER SEVERE PAIN, NEW ORDERS RECEIVED, FAXED TO [facility].
--- NOTE | 2020-05-09 21:12 | NUR ---
PAIN MED AND NAUSEA MED PROVIDED TO PATIENT, PT REQUESTS TO HAVE THE PAIN MED EVERY 3 HR, SHE WILL NOTIFY ME IF SHE NEEDS ZOFRAN THROUGH THE NIGHT. NO ACUTE DISTRESS SHOWN, PT TALKS ON THE PHONE AT TIMES. WATCHES TV. SITS IN HIGH BOOTH'S. CALL LIGHT WITHIN REACH.
[2020-05-09 22:00] VITALS: BP 103/60
--- NOTE | 2020-05-09 22:07 | NUR ---
VS TAKEN. PATIENT IN NO ACUTE DISTRESS, HAS LIGHTS TURNED OFF. NO COMPLAINTS OR NEEDS. CALL LIGHT WITHIN REACH.
--- NOTE | 2020-05-10 00:17 | NUR ---
PAIN MED PROVIDED TO PATIENT. PATIENT REQUEST ANOTHER PITCHER OF ICED WATER AND APPLE JUICE, PROVIDED, PROVIDED GATORADE. NO OTHER NEEDS OR COMPLAINTS. CALL LIGHT WITHIN REACH.
--- NOTE | 2020-05-10 03:11 | NUR ---
PT GIVEN PAIN AND NAUSEA MEDICATION PER REQUEST. RATE PAIN 9/10. NO OTHER NEEDS OR COMPLAINTS AT THIS TIME. CALL LIGHT WITHIN REACH.
[2020-05-10 03:16] VITALS: BP 107/61
--- NOTE | 2020-05-10 06:45 | NUR ---
RECIEVED REPORT FROM STEVEN HALL. ASSUMED PT CARE.
[2020-05-10 07:45] VITALS: BP 119/69
--- NOTE | 2020-05-10 07:45 | NUR ---
PT A&0X4, ABLE TO MAKE NEEDS KNOWN. AFEBRILE, RESPIRATION EVEN/UNLABORED, SA02@100% LS CLEAR THROUGHOUT. ABDOMEN SOFT, NON-TENDER. BSX4 HYPO. REGULAR DIET, PT UP TO BSC INDEPENDENT. PT CONTINUES WITH CHRONIC PAIN, MEDICATED ORDERED PER PT REQUEST. CALL LIGHT IN REACH. WILL MONITOR.
--- NOTE | 2020-05-10 08:40 | NUR ---
DR. BOSE AT [facility] FOR ASSESSMENT AND TO DISCUSS PLAN OF CARE.
--- NOTE | 2020-05-10 09:15 | NUR ---
DR. TOVAR AT [facility] FOR ASSESSMENT AND TO DISCUSS PLAN OF CARE. WILL MONITOR.
--- NOTE | 2020-05-10 16:11 | NUR ---
PT UP TO BSC, NO DISTRESS NOTED AT THIS TIME.
[2020-05-10 20:00] VITALS: BP 124/71
--- NOTE | 2020-05-10 21:25 | NUR ---
PAIN MEDICATION PROVIDED PER REQUEST, IV ANTIBIOTIC INFUSING NOW. PT REQUESTED MORE ICED WATER, HAND WIPES, BOTH PROVIDED. NO OTHER NEEDS AT THIS TIME. CALL LIGHT WITHIN REACH.
--- NOTE | 2020-05-10 23:38 | NUR ---
PT REQUESTS ICED WATER, PUDDING, AND SALTINE CRCKERS. ALL PROVIDED. SITTING UP IN HIGH BOOTH'S, NO ACUTE DISTRESS SHOWN. CALL LIGHT WITHIN REACH.
--- NOTE | 2020-05-11 00:26 | NUR ---
PATIENT HEARING SCREENER LIGHT FOR PAIN MED AND HER IV LEAKING. NEW IV SITE ON LFA, IV PAIN MED PROVIDED WELL.
--- NOTE | 2020-05-11 03:28 | NUR ---
PAIN MED PROVIDED. PT IN NO ACUTE DISTRESS. NO NEEDS AT THIS TIME. CALL LIGHT WITHIN REACH.
[2020-05-11 06:07] VITALS: BP 108/64
--- NOTE | 2020-05-11 06:15 | NUR ---
PAIN MED PROVIDED. ANTIBIOTIC INFUSING NOW. NO ACUTE DISTRESS SHWON. CALL LIGHT WITHIN REACH.
[2020-05-11 06:34] LABS: HEMATOCRIT 37.3 % (37.0-47.0); HEMOGLOBIN 11.8 g/dl (12.0-16.0); IMMATURE GRANULOCYTES 0.3 % (0.0-5.0); MEAN CELL VOLUME 95.2 fL CALC (80.0-100.0); MEAN CORPUSCULAR HGB 30.1 pG CALC (26.0-32.0); MEAN CORPUSCULAR HGB CONC 31.6 g/dL CAL (32.0-36.0); NEUT# 4.77 thou/uL (2.00-7.15); RED BLOOD COUNT 3.92 mill/uL (4.20-5.60); RED CELL DISTRI WIDTH 13.1 % (11.5-15.5)
[2020-05-11 06:55] LABS: ANION GAP 7 (6-22 (CALC)); BUN 5 mg/dL (7-17); BUN/CREATININE RATIO 11 (12-20 (CALC)); CARBON DIOXIDE 27 mmol/l (22-30); CHLORIDE 105 mmol/l (95-108); CREATININE 0.5 mg/dL (0.5-1.0); GFR > 60 ML/MIN (>=60 (CALC)); GFR FOR AFR.AMER. > 60 ML/MIN (>=60 (CALC)); POTASSIUM 4.1 mmol/l (3.5-5.1); SODIUM 136 mmol/l (137-146)
--- NOTE | 2020-05-11 08:00 | NUR ---
ASSESSMENT COMPLETED. NO DISTRESS NOTED; DENIES NEEDS/PAIN AT THIS TIME. X5 SURGICAL DRESSINGS INTACT(RIGHT SIDED HAVE SLIGHTLY REDDENED AREAS NOTED TO OUTER TEGADERM). PER DAYSHIFT REPORT IT WAS ALREADY LIKE THIS. ENCOURAGED USE OF INCENTIVE SPIROMETER AND TO GET UP OOB INTO CHAIR; DECLINES AT THIS TIME TO GET OOB, RERPOTS SHE WILL LATER. CALL LIGHT IS IN REACH. MD IN ROOM DISCUSSING POC.
--- NOTE | 2020-05-11 09:06 | NUR ---
MEDICATED WITH ORDERED PRN PO DILAUDID AND IV ZOFRAN FOR PAIN AND NAUSEA; DENIES FURTHER NEEDS. CALL LIGHT IS IN REACH.
[2020-05-11 10:36] VITALS: BP 116/69
--- NOTE | 2020-05-11 12:05 | NUR ---
ONE TIME DOSE OF MOM GIVEN. NO DISTRESS NOTED; DENIES NEEDS.
--- NOTE | 2020-05-11 13:30 | NUR ---
UP AMBULATING AROUND THE NURSES STATION; TOLERATED WELL. STEADY GAIT.
--- NOTE | 2020-05-11 13:50 | NUR ---
MEDICATED WITH ORDERD PRN DILAUDID FOR PAIN; WILL REASSESS.
[2020-05-11 16:39] VITALS: BP 102/64
--- NOTE | 2020-05-11 16:40 | NUR ---
PT. SITTING UP IN BED WITH NO DISTRESS NOTED; VSS. NO DISTRESS NOTED. SNACK PROVIDED.
[2020-05-11 17:00] VITALS: BP 106/63
--- NOTE | 2020-05-11 17:45 | NUR ---
PT. MEDICATED WITH ORDERED PRN DILAUDID FOR PAIN; WILL REASSESS.
--- NOTE | 2020-05-11 19:00 | NUR ---
requested vanilla pudding & carafe of water-given.
[2020-05-11 19:10] VITALS: BP 106/73
--- NOTE | 2020-05-11 19:10 | NUR ---
awake. no c/o pain voiced. dsgs cdi to 5 puncture sites. #22 lfa saline lock. po fluids taken well. instructed to ambulate self to bathroom & not use bsc & amb around nurses desk x2 tonite. pt verbalized understanding.
--- NOTE | 2020-05-11 19:30 | NUR ---
amb self x20 minutes with mask on. vicki well.
--- NOTE | 2020-05-11 21:00 | NUR ---
requested carafe of water & vanilla pudding-given.
--- NOTE | 2020-05-11 22:00 | NUR ---
amb self x20 min. vicki well.
--- NOTE | 2020-05-11 22:50 | NUR ---
c/o "itching" @ puncture sites. dilaudid 8mg po given. talking freely on phone. nad.
--- NOTE | 2020-05-11 23:00 | NUR ---
requested gingerale & crackers-given.
--- NOTE | 2020-05-12 00:01 | NUR ---
eyes closed. no didtress.
--- NOTE | 2020-05-12 04:00 | NUR ---
eyes closed. resps even & unlabored. no apparent distress.
--- NOTE | 2020-05-12 06:10 | NUR ---
c/o pain. medicated as ordered.
--- NOTE | 2020-05-12 07:00 | NUR ---
PT. SITTING UP IN BED WITH NO DISTRESS NOTED; DENIES NEEDS/PAIN. SURGICAL DRESSING CHANGED AND PT. TOLERATED WELL. UPDATED ON POC. ENCOURAGED TO CALL FOR ANY NEEDS. CALL LIGHT IS IN REACH.
--- NOTE | 2020-05-12 08:25 | NUR ---
DR. BRODY IN AT BEDSIDE; UPDATING PT. ON POC. PT. STILL REPORTS NO BM; NEW ORDERS RECEIVED FOR COLACE AND TO NOTIFY IF PT. HAS A BM; WILL CARRY OUT THESE ORDERS.
[2020-05-12 10:54] VITALS: BP 110/67
--- NOTE | 2020-05-12 11:17 | NUR ---
PT. MEDICATED WITH ORDERED PRN DILAUDID PO. WARM PRUNE JUICE GIVEN. CALL LIGHT IS IN REACH.
[2020-05-12] MEDS ORDERED: METRONIDAZOL500 MG PO (13:19)
[2020-05-12] MEDS ORDERED: CIPROFLOXACN500 MG PO (13:19)
[2020-05-12 14:00] VITALS: BP 116/68
--- NOTE | 2020-05-12 14:55 | NUR ---
1425- D/C INSTRUCTIONS REVIEWED WITH PT. 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 ANSWERED ALL PT'S QUESTIONS. AWAITING RIDE. IV SITE REMOVED WITH CATHETER TIP INTACT. 1455- PT. DOWN VIA W/C ACCOMPANIED BY THIS SERVICE LINE BUS CLEANER IN STABLE CONDITION.
== END 2020-05-12 14:55 | disposition home or self-care (01) | DRG 854 ==
LOC: ED 13:05 → ED-I 19:00 → ED 19:06 → ICU 19:07
PROVIDERS: Internal Medicine; Student in an Organized Health Care Education/Training Program; ADMIT Internal Medicine; ATTEND Internal Medicine
PROC: 0FT44ZZ Resection of Gallbladder, Percutaneous Endoscopic Approach (ICD-10-PCS; principal; 2020-05-08)
DX: A41.9 Sepsis, unspecified organism (principal); K81.0 Acute cholecystitis; E87.2 Acidosis; R65.20 Severe sepsis without septic shock; G89.4 Chronic pain syndrome; Z85.07 Personal history of malignant neoplasm of pancreas; Z92.21 Personal history of antineoplastic chemotherapy; Z90.411 Acquired partial absence of pancreas; Z87.891 Personal history of nicotine dependence; Z79.891 Long term (current) use of opiate analgesic; Z11.59 Encounter for screening for other viral diseases
CPT/HCPCS: J0131; J1650; J2710; Q9967